=== PATIENT | female | born 1975 | race African-American/Black ===

== ENCOUNTER → 2024-03-10 | Day surgery (SDC) | payer BC ==
[~2024-03-10] MED LIST: DAILY VALUE1 EACH; LIDOCAINE HCL 2% LOCAL INJ 5 ML SDV VIAL INJ ONE; MIDAZOLAM HCL 2 MG/2 ML VIAL ONE; PROPOFOL IV EMULSION 10 MG/ML 20 ML VIAL ONE
[2024-03-10] MEDS: LACTATED RINGER'S 1,000 ML ONE (12:12)
[2024-03-10 14:06] VITALS: TEMP 98.1
[2024-03-10 14:35] VITALS: BP 122/77; PULSE 72; RESP 13; O2SAT 98
== END | disposition home or self-care (01) ==
LOC: OR 11:45 → EDSEX 14:00
PROVIDERS: ATTEND Internal Medicine Gastroenterology
DX: Z12.11 Encounter for screening for malignant neoplasm of colon (principal); K59.00 Constipation, unspecified; K64.8 Other hemorrhoids; Z71.3 Dietary counseling and surveillance; Z98.84 Bariatric surgery status; F90.9 Attention-deficit hyperactivity disorder, unspecified type; E66.01 Morbid (severe) obesity due to excess calories; Z79.899 Other long term (current) drug therapy; Z68.27 Body mass index [BMI] 27.0-27.9, adult
CPT/HCPCS: 45378; 81025; J2001; J2250; J2704; J7121